=== PATIENT | female | born 1955 | race Caucasian/White ===

== ENCOUNTER 2022-06-02 14:56 | Emergency (ER) | payer OTHER, SELFPAY ==
[2022-06-02 15:10] VITALS: BP 144/78; PULSE 85; RESP 20; TEMP 36.9; O2SAT 96; BMI 30.7
--- NOTE | 2022-06-02 15:10 | ED_ITS ---
HPI - Female Genitourinary General Chief complaint: Urogenital-Female <EVELIO Ordoñez - Last Filed: 06/02/22 15:11> Stated complaint: uti <EVELIO Ordoñez - Last Filed: 06/02/22 15:11> Time Seen by Provider: 06/02/22 15:24 <EVELIO Ordoñez - Last Filed: 06/02/22 15:11> History of Present Illness HPI Narrative: patient complains of burning with urination some blood in the urine and frequent urination for the past 24 hours, no fever no chills no dizziness no abdominal pain no back pain no flank pain no vomiting no nausea <EVELIO Maldonado Last Filed: 06/02/22 16:55> Related Data Home medications: Previous Rx's Medication Instructions Recorded nitrofurantoin 100 mg PO Q12H 5 days #10 caps 06/02/22 monohydrate/macrocrystals 100 mg capsule (Macrobid) phenazopyridine 200 mg tablet 200 mg PO TID PRN discomfort with 06/02/22 (Pyridium) urination 6 doses #6 tabs <EVELIO Ordoñez - Last Filed: 06/02/22 15:11> Allergies/Adverse reactions: Allergies Allergy/AdvReac Type Severity Reaction Status Date / Time amoxicillin [AMOXICILLIN] Allergy Unknown RASH PER Unverified 11/14/19 15:38 H&P erythromycin base Allergy Unknown ? RASH Unverified 11/14/19 15:38 [ERYTHROMYCIN BASE] <EVELIO Ordoñez Last Filed: 06/02/22 15:11> [facility] Past Medical History Source: nursing notes reviewed <EVELIO Maldonado - Last Filed: 06/02/22 16:55> Social History Social History: Social History Advance Directives: No Advance Directives Information Provided: Yes <EVELIO Ordoñez Last Filed: 06/02/22 15:11> Physical Exam Vital Signs: Vital Signs: Last Vital Signs Temp 98.4 F 06/02/22 15:10 Pulse 85 06/02/22 15:10 Resp 20 06/02/22 15:10 BP 144/78 H 06/02/22 15:10 Pulse Ox 96 06/02/22 15:10 O2 Del Method Room Air 06/02/22 15:10 BMI result Body Mass Index 30.7 <EVELIO Ordoñez - Last Filed: 06/02/22 15:11> Vital Signs: Last Vital Signs Temp 98.4 F 06/02/22 15:10 Pulse 85 06/02/22 15:10 Resp 20 06/02/22 15:10 BP 144/78 H 06/02/22 15:10 Pulse Ox 96 06/02/22 15:10 O2 Del Method Room Air 06/02/22 15:10 BMI result Body Mass Index 30.7 <EVELIO Maldonado - Last Filed: 06/02/22 16:55> general appearance comfortable relax no acute distress Eyes are anicteric no pallor Neck is supple Respiratory no distress The abdomen is soft nontender The back there is no flank tenderness there is no CVA tenderness Extremities full range of motion x4 <EVELIO Maldonado - Last Filed: 06/02/22 16:55> Course Course Course Narrative: SARAH - 66 yo female presents to the ER for evaluation of painful urination and blood in her urine that started yesterday. No fever, chills, N/V/D or back pain. Reports some lower abdominal discomfort. Nontoxic appearing in triage. Plan: UA <EVELIO Ordoñez - Last Filed: 06/02/22 15:11> SARAH - 66 yo female presents to the ER for evaluation of painful urination and blood in her urine that started yesterday. No fever, chills, N/V/D or back pain. Reports some lower abdominal discomfort. Nontoxic appearing in triage. Plan: UA Patient with UTI symptoms of frequency burning and some blood in the urine which are similar to prior urine infections that she has, had urinalysis positive for infection There was also 1+ glucose, she does check her sugars and follows with her doctor and sugars have been in control at home, point of care today was 87 She is treated with Macrobid and Pyridium, diagnosis UTI and discharged <EVELIO Maldonado - Last Filed: 06/02/22 16:55> Medical Decision Making Lab Data Labs: Lab Results 06/02/22 Range/Units 15:27 Urine Color Dark Yellow Urine Appearance Cloudy Urine pH 5.5 (5.0-9.0) Ur Specific [place] 1.025 (1.005-1.025) Urine Protein 100 (2+) H (Neg-Trace) mg/dL Urine Glucose (UA) 100 H (Negative) mg/dL Urine Ketones Trace (Negative) mg/dL Urine Blood Large (3+) H (Negative) Urine Nitrite Positive H (Negative) Ur Leukocyte Esterase Moderate (2+) H (Negative) Urine RBC >20 H (0-2) /HPF Urine WBC >50 H (0-5) /HPF Ur Squamous Epith Cells 0-2 (0-2) /HPF Urine Bacteria None Seen (None Seen) Hyaline Casts 0-2 (0-2) /LPF <EVELIO Ordoñez - Last Filed: 06/02/22 15:11> Lab Results 06/02/22 Range/Units 15:27 Urine Color Dark Yellow Urine Appearance Cloudy Urine pH 5.5 (5.0-9.0) Ur Specific [place] 1.025 (1.005-1.025) Urine Protein 100 (2+) H (Neg-Trace) mg/dL Urine Glucose (UA) 100 H (Negative) mg/dL Urine Ketones Trace (Negative) mg/dL Urine Blood Large (3+) H (Negative) Urine Nitrite Positive H (Negative) Ur Leukocyte Esterase Moderate (2+) H (Negative) Urine RBC >20 H (0-2) /HPF Urine WBC >50 H (0-5) /HPF Ur Squamous Epith Cells 0-2 (0-2) /HPF Urine Bacteria None Seen (None Seen) Hyaline Casts 0-2 (0-2) /LPF <EVELIO Maldonado - Last Filed: 06/02/22 16:55> Discharge Plan Discharge Clinical Impression: Urinary tract infection <EVELIO Ordoñez - Last Filed: 06/02/22 15:11> Patient Disposition: Home, Self-Care <EVELIO Ordoñez Last Filed: 06/02/22 15:11> Additional Instructions: urinalysis showed a urinary tract infection consistent with her symptoms Use Macrobid antibiotic as directed Return any time for fever vomiting pain any worse condition or any concerns <EVELIO Ordoñez Last Filed: 06/02/22 15:11> Prescriptions: New nitrofurantoin monohyd/m-cryst [Macrobid] 100 mg capsule 100 mg PO Q12H 5 Days Qty: 10 0RF Rx Instructions: must administer with a meal/food phenazopyridine [Pyridium] 200 mg tablet 200 mg PO TID PRN (Reason: discomfort with urination) Qty: 6 0RF <EVELIO Ordoñez - Last Filed: 06/02/22 15:11>
[2022-06-02 15:49] LABS: Appearance Urine Cloudy; Color Urine Dark Yellow; Glucose Urine UA 100 mg/dL (Negative); Leukocyte Esterase Urine Moderate (2+) (Negative); Nitrite Urine Positive (Negative); PH 5.5 (5.0-9.0); Specific Gravity - Urine 1.025 (1.005-1.025); UMIC TRIGGER UACC YES; Urine Blood Large (3+) (Negative); Urine Ketones Trace mg/dL (Negative); Urine Protein 100 (2+) mg/dL (Neg-Trace)
[2022-06-02 16:31] LABS: Bacteria Urine None Seen (None Seen); Hyaline Casts Urine 0-2 /LPF (0-2); RBC Urine >20 /HPF (0-2); Squamous Epithelial Cell Urine 0-2 /HPF (0-2); UACC Culture Trigger YES; WBC Urine >50 /HPF (0-5)
[2022-06-02] MEDS: Nitrofurantoin Monohyd/M-Cryst 100 MG CAPSULE PO (17:09)
[2022-06-02] MEDS: Phenazopyridine HCL 200 MG TABLET PO (17:09)
--- NOTE | 2022-06-02 17:17 | PC.NURSE ---
PT WAS EVALUATED BY PROVIDER, THIS RN MEDICATED PATIENT FOR DISCHARGE
== END 2022-06-02 17:18 | disposition home or self-care (01) ==
PROVIDERS: Physician Assistant; Emergency Provider Student in an Organized Health Care Education/Training Program; PCP Internal Medicine
DX: N39.0 Urinary tract infection, site not specified (principal); R31.9 Hematuria, unspecified; R35.0 Frequency of micturition; Z79.899 Other long term (current) drug therapy
CPT/HCPCS: 81001; 87086; 87088; 87186; 99283

== ENCOUNTER 2023-06-30 10:00 | Outpatient (RCR) | payer OTHER, SELFPAY | END 2023-07-12 11:25 | disposition home or self-care (01) | LOC: HO.CR 10:00 | PROVIDERS: PCP Internal Medicine; Visit Provider Internal Medicine Cardiovascular Disease | DX: Z98.61 Coronary angioplasty status (principal) | CPT/HCPCS: 93798 ==

== ENCOUNTER 2023-07-28 12:33 | Emergency (ER) | payer OTHER, SELFPAY ==
--- NOTE | ~2023-07-28 | XR_ITS ---
EXAMINATION: XR KNEE, LEFT CLINICAL INFORMATION: Atraumatic medial knee pain. COMPARISON: None available. TECHNIQUE: Two views of the left knee. FINDINGS: Alignment is anatomic. Mild medial tibiofemoral cartilage space loss with marginal osteophytes. Mild patellofemoral cartilage space loss of retropatellar osteophytes. No displaced fracture. No significant joint effusion. Vascular calcifications. XR/XR knee LT 2V IMPRESSION: Mild osteoarthritis of the left knee.
--- NOTE | 2023-07-28 12:43 | ED.LOWEXIN ---
HPI - Extremity Injury (Lower) General Chief Complaint: Extremity Injury, Lower Stated Complaint: pain in knee Time Seen by Provider: 07/28/23 14:02 History of Present Illness HPI Narrative: patient complains of gradually worsening left knee pain worse on the medial aspect which is developed over preceding months, but woke up today and was more painful than normal, denies any swelling denies any buttock in the denies any redness or warmth no fevers, denies any rash Related Data Previous Rx's ?Medication ?Instructions ?Recorded nitrofurantoin 100 mg PO Q12H 5 days #10 caps 06/02/22 monohydrate/macrocrystals 100 mg capsule (Macrobid) phenazopyridine 200 mg tablet 200 mg PO TID PRN discomfort with 06/02/22 (Pyridium) urination 6 doses #6 tabs acetaminophen 500 mg tablet 1,000 mg (2 x 500 mg) PO QID PRN 07/28/23 pain #20 tabs oxycodone 5 mg tablet 5 mg PO Q6H PRN pain #10 tabs 07/28/23 Allergies Allergy/AdvReac Type Severity Reaction Status Date / Time amoxicillin [AMOXICILLIN] Allergy Unknown RASH PER Verified 07/28/23 12:47 H&P erythromycin base Allergy Unknown ? RASH Verified 07/28/23 12:47 [ERYTHROMYCIN BASE] pine nut Allergy Rash Verified 07/28/23 12:47 PMFSH Social History Social History Advance Directives: No Advance Directives Information Provided: No Do you have a plan to hurt others: No Plan Physical Exam Vital Signs: Vital Signs: Last Vital Signs Temp 97.8 F 07/28/23 15:28 Pulse 70 07/28/23 15:28 Resp 20 07/28/23 15:28 BP 168/78 H 07/28/23 15:28 Pulse Ox 98 07/28/23 15:28 O2 Del Method Room Air 07/28/23 15:28 BMI result Body Mass Index 32.1 general appearance is no distress Calm comfortable cooperative in bed As normocephalic atraumatic Neck is supple Respiratory no distress The left knee is mildly swollen not red warm no obvious effusion it extends to 180 it flexes past 90 The skin of the knee is normal color no redness or warmth no wounds, she could a straight leg raise, there was tenderness suprapatellar as well as medial tenderness There is no posterior leg tenderness swelling no calf pain no calf tenderness no calf swelling, neurovascular intact distal and all skin is normal color Other extremities normal Course Course Course Narrative: This is a Rapid Medical Examination (RME) performed by Enma Pelaez PA-C in triage. Full HPI, ROS, assessment and treatment plan per primary provider in the Main ED. 67 yo female hx of here with left knee pain and swelling x months after walking during stress test, worsening over the last few days. pain exacerbated w/ ambulation and bearing weight on LLE. pain is localized to medial aspect of left knee. using cream, motrin, and tylenol at home without relief. last dose yesterday. denies chest pain, sob, hemoptysis. no recent travel or long car rides. in wheelchair, unable to assess ambulation. +swelling to left knee. not TTP. no palpable deformity, warmth, fluctuance. no calf tenderness. Plan: xrs patient's x-ray showed some osteoarthritis in the history and exam are consistent with an osteoarthritis flare, no sign of septic joint, patient can wait but uncomfortably with a limp but she can ambulate with a walker safely She is given a Percocet and Tylenol or and is warned this can cause constipation or dizziness and she will with orthopedist Discharge Plan Discharge Clinical Impression: Osteoarthritis of left knee Patient Disposition: Home, Self-Care Additional Instructions: X-ray showed arthritis Pain worsening over weeks to months is very consistent with osteoarthritis which is probably the cause ear pain Return and any time for any worse condition or any concerns Best plan is follow closely with orthopedist as there are treatments for osteoarthritis including physical therapy and steroid injection Prescriptions: New acetaminophen 500 mg tablet 1,000 mg PO QID PRN (Reason: pain) Qty: 20 0RF oxycodone 5 mg tablet 5 mg PO Q6H PRN (Reason: pain) Qty: 10 0RF Rx Instructions: Partial Fill upon patient request. No Action nitrofurantoin monohyd/m-cryst [Macrobid] 100 mg capsule 100 mg PO Q12H 5 Days Qty: 10 0RF Rx Instructions: must administer with a meal/food phenazopyridine [Pyridium] 200 mg tablet 200 mg PO TID PRN (Reason: discomfort with urination) Qty: 6 0RF Referrals: Aldo Simons MD [Physician] - (Left knee pain, osteoarthritis) Print Language: [place]
[2023-07-28 12:44] VITALS: BP 141/78; PULSE 75; RESP 20; TEMP 36.2; O2SAT 97; BMI 32.1
[2023-07-28 15:28] VITALS: BP 168/78; PULSE 70; RESP 20; TEMP 36.6; O2SAT 98
[2023-07-28] MEDS: Acetaminophen 325 MG TABLET 975 MG PO (15:35)
[2023-07-28] MEDS: oxyCODONE HCl Immed Release 5 MG TABLET PO (15:36)
[2023-07-28 15:40] VITALS: BP 168/78; PULSE 70; RESP 20; TEMP 36.6; O2SAT 98
== END 2023-07-28 15:44 | disposition home or self-care (01) ==
PROVIDERS: Emergency Provider Emergency Medicine; PCP Internal Medicine
DX: M17.12 Unilateral primary osteoarthritis, left knee (principal)
CPT/HCPCS: 73560; 99283; 99284

== ENCOUNTER 2023-08-28 09:51 | Outpatient (AMB) | payer OTHER, SELFPAY ==
--- NOTE | 2023-08-28 09:53 | A.OFFVIS_ITS ---
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 She was seen in [facility] [place] 07/28/23 due to waking up that day with increase pain and swelling in her knee. She was unable to ambulate without assistance but has not been using a cane or walker since. Her main problem is standing up from sitting. She ambulates with a limp due to her pain and expresses this pain and swelling started from a stress test she got done in cardiac therapy. She reports throbbing pain, numbness and tingling localized on medial aspect of left knee. Has tried using topical gel, Advil, and Tylenol at home with a short amount relief. Allergies amoxicillin [AMOXICILLIN] Allergy (Unknown, Verified 08/28/23 09:55) RASH PER H&P erythromycin base [ERYTHROMYCIN BASE] Allergy (Unknown, Verified 08/28/23 09:55) ? 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 She was seen in [facility] on 07/28/23 due to waking up that day with increase pain and swelling in her knee. She was unable to ambulate without assistance but has not been using a cane or walker since. Her main problem is standing up from sitting. She ambulates with a limp due to her pain and expresses this pain and swelling started from a stress test she got done in cardiac therapy. She reports throbbing pain, numbness and tingling localized on medial aspect of left knee. Has tried using topical gel, Advil, and Tylenol at home with a short amount relief. [facility] Social History (Updated 08/28/23 @ 10:03 by SHAWNA Brown) Alcohol intake: current Patient Tobacco Use Status: Former Tobacco user Current occupational status: retired Physical Exam Vital Signs: BMI result Body Mass Index 32.1 Extrem Other: left knee with medial joint line ttp and mild + [employer] Procedures Joint Injection/Drain Joint Injection/Drain Details: Injected 1 mL of Decadron and 3 mL 1% lidocaine and 3 mL of 0.25% Marcaine. Site was prepped using aseptic technique. Patient tolerated the procedure well. Primary Site: left knee Approach Used: anterolateral Coding - Large joint Procedure code (CPT) selection complete Results Reviewed Results Reviewed: I personally reviewed relevant radiographs. Mild knee OA on left Assessment & Plan Assessment & Plan (1) Arthritis of left knee: Code(s): M17.12 - Unilateral primary osteoarthritis, left knee Category: Medical Plan: Mild left knee OA. I injected knee. She can see me in 3 months if no improvement or if symptoms return Medications: Discontinued oxycodone Partial Fill upon patient request. Discontinued Reason: Patient no longer taking 5 mg PO Q6H PRN 10 tabs 0RF pain Coding Level of Care Code New Pt Level 3 (66797) Diagnoses Arthritis of left knee M17.12 CPT Codes Coding - Large joint: 77974 - Large joint ([id number])
[2023-08-28 09:54] VITALS: BMI 32.1
== END 2023-08-28 10:33 | disposition home or self-care (01) ==
PROVIDERS: PCP Internal Medicine; Visit Provider Orthopaedic Surgery
DX: M17.12 Unilateral primary osteoarthritis, left knee (principal)
CPT/HCPCS: 20610; 99204

== ENCOUNTER → 2023-08-28 09:51 | Outpatient (BNVA) | payer OTHER, SELFPAY | PROVIDERS: PCP Internal Medicine; Visit Provider Orthopaedic Surgery | DX: M17.12 Unilateral primary osteoarthritis, left knee (principal) | CPT/HCPCS: 20610; 99202; J0665; J1100 ==

== ENCOUNTER 2023-11-30 09:34 | Outpatient (AMB) | payer OTHER, SELFPAY ==
--- NOTE | 2023-11-30 09:51 | A.OFFVIS_ITS ---
Intake Visit Reasons: LT knee OA injectio- last inj-08/28/23 Intake Note: Lela is a 68 year old female who presents today for a follow up of her left knee OA. She was last seen on 08/28/23 where the left knee was injected. Patient reports that this last injection was helpful and she would like to repeat injection today. Allergies amoxicillin [AMOXICILLIN] Allergy (Unknown, Verified 08/28/23 09:55) RASH PER H&P erythromycin base [ERYTHROMYCIN BASE] Allergy (Unknown, Verified 08/28/23 09:55) ? RASH pine nut Allergy (Verified 08/28/23 09:55) Rash HPI HPI LT knee OA injectio- last inj-08/28/23: Details: Lela is a 68 year old female who presents today for a follow up of her left knee OA. She was last seen on 08/28/23 where the left knee was injected. Patient reports that this last injection was helpful and she would like to repeat injection today. [facility] Social History Alcohol intake: current Patient Tobacco Use Status: Former Tobacco user Current occupational status: retired Physical Exam Extrem Other: left knee with medial joint line ttp and mild + [employer] Procedures Joint Injection/Aspiration Joint Injection/Aspiration Details: Injected 1 mL of Decadron and 3 mL 1% lidocaine and 3 mL of 0.25% Marcaine. Site was prepped using aseptic technique. Patient tolerated the procedure well. Primary Site: left knee Approach Used: anterolateral Coding 24218 - Large joint Procedure code (CPT) selection complete Assessment & Plan Assessment & Plan (1) Arthritis of left knee: Code(s): M17.12 - Unilateral primary osteoarthritis, left knee Category: Medical Plan: This is a 68-year-old woman with [id number] left knee OA. She has benefit from injections and would like to repeat injections today. I injected her left knee. I recommend continue activity as tolerated and she may follow up as needed. Coding Level of Care Code Est Pt Level 3 (04341) Diagnoses Arthritis of left knee M17.12 CPT Codes Coding - Large joint: 00361 - Large joint ([id number])
== END 2023-11-30 10:18 | disposition home or self-care (01) ==
PROVIDERS: PCP Internal Medicine; Visit Provider Orthopaedic Surgery
DX: M17.12 Unilateral primary osteoarthritis, left knee (principal)
CPT/HCPCS: 20610; 99213

== ENCOUNTER → 2023-11-30 09:34 | Outpatient (BNVA) | payer OTHER, SELFPAY | PROVIDERS: PCP Internal Medicine; Visit Provider Orthopaedic Surgery | DX: M17.12 Unilateral primary osteoarthritis, left knee (principal) | CPT/HCPCS: 20610; 99212; J0665; J1100; J2003 ==